=== PATIENT | female | born 1975 | race African-American/Black ===

== ENCOUNTER 2016-05-22 13:26 | Emergency (ER) | payer OTHER ==
[~2016-05-22] VITALS: Ht 180.3 cm; Wt 70.3 kg
[2016-05-22] MEDS ORDERED: CLARITIN-D 241 EACH PO (14:06)
[2016-05-22] MEDS ORDERED: TYLENOL EXTRA500 MG ORAL (14:06)
[2016-05-22 14:25] VITALS: BP 143/87
[2016-05-22 14:27] VITALS: BP 143/87
--- NOTE | 2016-05-22 17:33 | Emergency Room Report ---
History of Present Illness General Chief Complaint: General Complaint Source: Patient Present Illness HPI The pt is a 41 yo F presenting for abdominal pain, abdominal numbness, and possible hernia after C section on 02/05/2016. The patient is describing the abdominal pain is as an 8/10 dull ache and does not radiate from the midabdomen. The patient states that she noticed a mass around the umbilicus after the surgery which has been increasing in size. The patient also notes numbness inferior to the surgical scar which has not improved since the surgery. The patient has not been able to followup with [facility] as she states she has had a change of insurance. The patient denies nausea, vomiting, fever, chills, melena, hematochezia, hematemesis, dysuria, hematuria, vaginal discharge Allergies: Coded Allergies: No Known Allergies (Unverified , 05/22/16) Patient History Past Medical History: see triage record Pertinent Family History: none Last Menstrual Period: 05/18/15 Now: No Reviewed Nursing Documentation: PMH: Agreed, PSxH: Agreed Nursing Documentation-PMH Past Medical History: No History, Except For Hx Hypertension: Yes - associated with Review of Systems All Other Systems: negative except mentioned in HPI Physical Exam Vital Signs Date Time Temp Pulse Resp B/P Pulse Ox O2 Delivery O2 Flow Rate FiO2 05/22/16 13:35 98.4 80 18 157/96 97 Room Air Sp02 EP Interpretation: reviewed, normal General Appearance: no apparent distress, alert, GCS 15, non-toxic Head: normocephalic, atraumatic Eyes: bilateral eye PERRL, bilateral eye normal inspection ENT: hearing grossly normal, normal pharynx, no angioedema, normal voice, TMs + canals normal, uvula midline, moist mucus membranes, nasal congestion Neck: full range of motion, supple/symm/no masses Respiratory: chest non-tender, lungs clear, normal breath sounds, speaking full sentences Cardiovascular #1: regular rate, rhythm, no edema Cardiovascular #2: 2+ carotid (R), 2+ carotid (L), 2+ radial (R), 2+ radial (L) , 2+ dorsalis pedis (R), 2+ dorsalis pedis (L) Gastrointestinal: normal bowel sounds, soft, no guarding, no rebound, tenderness - angelika-umbilical, hernia - umbilical hernia. Reducible Rectal: deferred Genitourinary: normal inspection, no CVA tenderness Musculoskeletal: back normal, gait/station normal, normal range of motion, non- tender Neurologic: alert, oriented x3, responsive, motor strength/tone normal, sensory intact, speech normal Psychiatric: judgement/insight normal, memory normal, mood/affect normal, no suicidal/homicidal ideation Reflexes: 3+ bicep (R), 3+ bicep (L), 3+ tricep (R), 3+ tricep (L), 3+ knee (R) , 3+ knee (L) Skin: normal color, no rash, warm/dry, well hydrated Lymphatic: no adenopathy Medical Decision Making PA Attestation Dr. Plunkett is my supervising physician. Patient management was discussed with my supervising physician Diagnostic Impression: Primary Impression: Seasonal allergies Additional Impression: Umbilical hernia ER Course The pt is a 41 yo F presenting for abdominal pain, abdominal numbness, and possible hernia after C section on 02/05/2016. DDx: umbilical hernia, inguinal hernia, nerve damage, gastroenteritis, appendicitis PE: vitals WNL. NAD There is nasal congestion. Otherwise HEENT exam unremarkable. Abdomen: Soft. Normal bowel sounds. There is tenderness to palpation over the periumbilical area. hernia is easily reducible with light persistent pressure. Surgical scar consistent with C section Pt will be DC'ed home with Claritin for allergies and will FU with [facility] for further care and treatment. ER precautions given Last Vital Signs Date Time Temp Pulse Resp B/P Pulse Ox O2 Delivery O2 Flow Rate FiO2 05/22/16 14:27 98.4 73 18 143/87 97 Room Air Status: improved Disposition: HOME, SELF-CARE Condition: Improved Scripts Acetaminophen* (TYLENOL EXTRA STRENGTH*) 500 Mg Tablet 500 MG ORAL Q8H Y for Prn Headache/Temp > 101, #30 TAB 0 Refills Prov: TERZIAN,RITA P.A. 05/22/16 Loratadine/Pseudoephedrine (CLARITIN-D 24 HOUR TABLET) 1 Each Tab.er.24h 1 TAB PO DAILY, #30 TAB Prov: TERZIAN,RITA P.A. 05/22/16 Referrals: [facility],REFERRING (PCP) Patient Instructions: Hernia, Adult, Allergies Additional Instructions: I discussed my findings with the patient. All questions and concerns have been answered. Treatment and medication compliance have been addressed. I advised the patient that they need to follow up with PMD in 3-5 days. Return to ED if symptoms worsen, new symptoms arise, or if needed for any reason. Patient verbalized understanding of discharge instructions. The patient will follow up with [facility] for further care RITA DONAHUE May 22, 2016 17:33
== END 2016-05-22 14:29 | disposition home or self-care (01) ==
LOC: EMR 13:50
DX: K42.9 Umbilical hernia without obstruction or gangrene (principal); J30.2 Other seasonal allergic rhinitis
CPT/HCPCS: 99284